=== PATIENT | male | born 1985 | race Caucasian/White ===

== ENCOUNTER 2021-09-04 14:36 | Emergency (ER) | payer OTHER, SELFPAY ==
--- NOTE | ~2021-09-04 | XR_ITS ---
XR finger 3rd LT min 2V DATE: 09/04/2021 15:07 INDICATION: Smashing injury to distal finger TECHNIQUE: 4 views COMPARISON: None FINDINGS: There is a nondisplaced fracture of the tuft of the distal phalanx. No other fracture or dislocation. No radiopaque soft tissue foreign body or subcutaneous emphysema. IMPRESSION: Nondisplaced fracture of the tuft of the distal phalanx Reviewed, dictated and finalized at location A.
[2021-09-04 14:54] VITALS: BP 126/107; PULSE 99; RESP 16; TEMP 36.6; O2SAT 97
--- NOTE | 2021-09-04 15:15 | ED.UPPEXIN ---
HPI - Extremity Injury (Upper) General Chief Complaint: Extremity Injury, Upper Stated Complaint: left hand finger smashed Time Seen by Provider: 09/04/21 15:15 Source: patient Mode of arrival: ambulatory Limitations: no limitations History of Present Illness HPI narrative: 36-year-old male presented for complaint of left middle finger pain after injury yesterday. He states he smashed into the small when moving furniture. States pain is significantly improved today. Endorses mild bleeding/bruising underneath the nail, and the tip of the finger is centrifuge separator tender to touch. He has taken Tylenol and ibuprofen and applied ice. Denies numbness, tingling, or weakness of the hand. Related Data Home Medications Medication Instructions Recorded Confirmed albuterol sulfate 90 mcg/actuation 2 inh inhalation QID PRN Shortness 09/04/21 09/04/21 aerosol inhaler Of Breath Or Wheezing budesonide-formoterol HFA 160 1 inh inhalation DAILY 09/04/21 09/04/21 mcg-4.5 mcg/actuation aerosol inhaler (Symbicort) Allergies Allergy/AdvReac Type Severity Reaction Status Date / Time cefaclor Allergy Mild Rash Verified 09/04/21 15:00 Review of Systems Review of Systems: CONSTITUTIONAL: Denies body aches, fever, chills CARDIOVASCULAR: Denies chest pain, palpitations, or edema. RESPIRATORY: Denies cough or dyspnea. GASTROINTESTINAL: Denies abdominal pain, nausea, vomiting, or diarrhea. SKIN: Reports finger bruising MUSCULOSKELETAL: Reports finger pain NEUROLOGIC: Denies headache, numbness, tingling, or weakness. All systems reviewed & are unremarkable except as noted in HPI and below PMFSH Comments At time of signature, I have reviewed and agree with nursing past medical, surgical, social and family history unless otherwise noted. Please see nursing chart for further information. There is no relevant family history pertinent to the presenting complaint Exam Narrative: GENERAL: Well-appearing CHEST: Speaks in full sentences. No respiratory distress. HEART: Regular rate and rhythm. Normal and equal peripheral pulses. EXTREMITIES: Left hand has normal strength and sensation, limited range of motion to third digit. Subungual hematoma approximately one third of the nail bed. nail is Nontender to palpation. Mild edema and ecchymosis to palmar surface of the distal 3rd digit, tender with palpation No open wounds, skin tenting, or obvious deformity; pulse palpable and equal bilaterally, skin warm, dry, pink. Capillary refill less than 3 seconds. SKIN: Warm, dry, no rash. NEURO: Alert and oriented x3. Course Course Emergency Course: Patient is aware of diagnosis, understands and agrees to treatment plan. Anticipatory guidance given. Patient agrees to follow-up as directed and is aware of reasons to seek care at the emergency department. Portions of this record may have been created with voice recognition software Level of Care: Express Care Visit Vital Signs Vital signs: Vital Signs Temperature 98 F 09/04/21 14:54 Pulse Rate 99 09/04/21 14:54 Respiratory Rate 16 09/04/21 14:54 Blood Pressure 126/107 H 09/04/21 14:54 Pulse Oximetry 97 09/04/21 14:54 Oxygen Delivery Room Air 09/04/21 14:54 Temperature 98 F 09/04/21 14:54 Pulse Rate 99 09/04/21 14:54 Respiratory Rate 16 09/04/21 14:54 Blood Pressure 126/107 H 09/04/21 14:54 Pulse Oximetry 97 09/04/21 14:54 Oxygen Delivery Room Air 09/04/21 14:54 Reviewed Procedures Orthopedic Splinting/Casting Injury #1: Splinting/Casting Date: 09/04/21 Side: left Upper Extremity Injury Location: finger (3rd) Splint: prefabricated (stacked finger splint applied perTech.) Pre-Procedure Neuro Vascular Exam: normal Post-Procedure Neuro Vascular Exam: normal MDM - Extremity Injury (Upper) MDM Narrative Medical decision making narrative: Xray reviewed with pt, Nondisplaced fracture of the tuft of the distal phal
== END 2021-09-04 15:35 | disposition home or self-care (01) ==
PROVIDERS: Emergency Provider Nurse Practitioner Family
DX: S62.663A Nondisplaced fracture of distal phalanx of left middle finger, initial encounter for closed fracture (principal); X58.XXXA Exposure to other specified factors, initial encounter; J45.909 Unspecified asthma, uncomplicated; G47.30 Sleep apnea, unspecified
CPT/HCPCS: 29130; 73140; 99204; G0463

== ENCOUNTER 2023-07-14 08:22 | Emergency (ER) | payer BC, SELFPAY ==
--- NOTE | 2023-07-14 08:28 | ED.GENADULT ---
HPI - General Adult General Chief complaint: Ear Stated complaint: Left Ear/Jaw Pain Time Seen by Provider: 07/14/23 08:28 Source: patient, RN notes reviewed and old records reviewed Mode of arrival: ambulatory Limitations: no limitations History of Present Illness HPI narrative: 38-year-old male to Express Care with complaint of acute onset left ear and jaw pain upon awakening this morning. Patient denies any pertinent history. Patient endorses seasonal allergies. Patient has not taken anything pain prior to arrival. On exam patient appears uncomfortable and in mild distress from pain. Patient able to tolerate fluids. Respirations even and nonlabored. Related Data Home Medications Medication Instructions Recorded Confirmed albuterol sulfate 90 mcg/actuation 2 inh inhalation QID PRN Shortness 09/04/21 07/14/23 aerosol inhaler Of Breath Or Wheezing budesonide-formoterol HFA 160 1 inh inhalation DAILY 09/04/21 07/14/23 mcg-4.5 mcg/actuation aerosol inhaler (Symbicort) Allergies Allergy/AdvReac Type Severity Reaction Status Date / Time cefaclor Allergy Mild Rash Verified 09/10/21 08:20 Review of Systems Review of Systems: All systems reviewed & are unremarkable except as noted in HPI and below Constitutional: Constitutional: Reports as per HPI and Denies fever(s) Eyes: Eyes: Reports no additional eye complaints ENT: Reports as per HPI, Reports otalgia ( left) and Reports facial pain ( left jaw) Cardiovascular: Cardiovascular: Reports no additional cardiovascular complaints, Denies chest pain and Denies dyspnea Respiratory: Respiratory: Reports no additional respiratory complaints, Denies cough and Denies dyspnea Musculoskeletal: Musculoskeletal: Reports no additional musculoskeletal complaints Neurologic: Reports system reviewed and no additional complaints, except as documented Psychiatric: Psychiatric: Reports no additional psychiatric complaints [facility] Past Medical History Medical History Asthma HERACLIO (obstructive sleep apnea) Surgical History Surgical History History of tonsillectomy Family History Family History Other Arthritis Asthma Diabetes mellitus Hypertension Social History Social History Smoking status: Former smoker Tobacco type: cigarettes Additional smoking assessment comments: Quit smoking 2016 Substance use: current Occupation/Education: occupation Gender identity (if verbalized by the patient): Male Comments At the time of my signature, I reviewed and agree with the nursing past medical, surgical, social, and family history. There is no relevant family history pertinent to the patient complaint. Exam Const: General: cooperative, healthy appearing, comfortable, no acute distress, alert and well nourished Nutritional Appearance: well nourished Orientation/consciousness: patient oriented x3 Limitations: no limitations HENMT: Head: normal to inspection Ears: TM normal on the right, Abnormal EAC present erythema on the left and EAC tenderness on the left; no otic discharge and TM abnormal erythematous Face/Nose/Sinus: Normal external nose present, Normal nares present, normal facial exam, No erythema and No edema Face and sinus: normal facial exam, no erythema and no edema Mouth: Yes Normal oral and palatal mucosa present Throat: posterior oropharynx abnormal erythema and postnasal drainage Eyes: General: appearance normal, both eyes and all related structures Neck: Neck: normal visual inspection, full ROM and no meningeal signs Lymphatic: no lymphadenopathy noted and no lymphedema noted Chest: Chest palpation & inspection: normal inspection of the chest Resp: Effort & Inspection: normal respiratory effort a
[2023-07-14 08:36] VITALS: BP 138/84; PULSE 80; RESP 18; TEMP 37.1; O2SAT 100
== END 2023-07-14 09:11 | disposition home or self-care (01) ==
PROVIDERS: Emergency Provider Nurse Practitioner Family
DX: H66.92 Otitis media, unspecified, left ear (principal); Z87.891 Personal history of nicotine dependence; J45.909 Unspecified asthma, uncomplicated
CPT/HCPCS: 99213; G0463

== ENCOUNTER 2024-03-25 09:27 | Emergency (ER) | payer BC, SELFPAY ==
[2024-03-25 09:38] VITALS: BP 126/77; PULSE 97; RESP 20; TEMP 36.7; O2SAT 97
--- NOTE | 2024-03-25 10:04 | ED_ITS ---
HPI - Ear Problem General Chief complaint: Ear Stated complaint: ear inf History of Present Illness [facility] Narrative: Patient is a 38-year-old male, presents to urgent care with 4 day history of right ear pain, some muffled hearing without associated fevers or chills. He denies otorrhea or trauma. He does endorse recent URI that has resolved. He takes Zyrtec daily, he has taken Tylenol once for symptom relief without much improvement. He denies any additional associated symptoms or modifying factors. Related Data Home Medications ?Medication ?Instructions ?Recorded ?Confirmed ?Last Taken ?Type albuterol sulfate 90 mcg/actuation 2 inh inhalation QID PRN Shortness 09/04/21 07/14/23 Unknown History aerosol inhaler Of Breath Or Wheezing budesonide-formoterol HFA 160 1 inh inhalation DAILY 09/04/21 07/14/23 Unknown History mcg-4.5 mcg/actuation aerosol inhaler (Symbicort) Allergies Allergy/AdvReac Type Severity Reaction Status Date / Time cefaclor Allergy Mild Rash Verified 09/10/21 08:20 Review of Systems ENT: Comments: Refer to [facility] Past Medical History Medical History Asthma HERACLIO (obstructive sleep apnea) Surgical History Surgical History History of tonsillectomy Family History Family History Other Arthritis Asthma Diabetes mellitus Hypertension Social History Social History Smoking status: Former smoker Tobacco type: cigarettes Additional smoking assessment comments: Quit smoking 2016 Substance use: current Occupation/Education: occupation Gender identity (if verbalized by the patient): Male Exam Const: General: healthy appearing and no acute distress Nutritional Appearance: obese Orientation/consciousness: patient oriented x3 Limitations: no limitations HENMT: Head: normal to inspection Ears: external ears normal, EAC's normal and TM abnormal ( bilateral serous otitis media, right TM is markedly retracted, no erythema) Face and sinus: normal facial exam and sinuses nontender Mouth: Yes Normal oral and palatal mucosa present, Yes lip normal and Yes moist mucous membranes Throat: posterior oropharynx normal and uvula midline Other: TMs remain translucent bilaterally Eyes: Conjunctivae: conjunctivae normal Pupils: Equal, round and reactive pupils present EOM: EOMs intact bilaterally Neck: Neck: normal visual inspection Chest: Chest palpation & inspection: normal inspection of the chest Resp: Effort & Inspection: normal respiratory effort Auscultation: clear to auscultation bilaterally Cardio: Rate: regular rate Rhythm: regular rhythm GI: GI Palp: Yes Soft to palpation Skin: General skin exam: normal color Rashes: no rashes Wounds: no wounds Neuro: General: patient oriented x3, moves all extremities, no meningeal signs, no focal motor deficits and CN's II-XI intact bilaterally Cranial nerves: Yes Nystagmus not present Speech: normal speech Gait exam (Neuro): Normal gait present Extrem: General: normal to inspection Course Course Emergency Course: plan to treat with short steroid course, continue antihistamine as directed [id number], follow up with PCP in 3 days if symptoms are not improving. Patient is agreeable plan Level of Care: Express Care Visit ([id number]) Vital Signs Vital signs: Vital Signs Temperature 36.7 C 03/25/24 09:38 Pulse Rate 97 03/25/24 09:38 Respiratory Rate 20 03/25/24 09:38 Blood Pressure 126/77 03/25/24 09:38 Pulse Oximetry 97 03/25/24 09:38 Oxygen Delivery Room Air 03/25/24 09:38 Temperature 36.7 C 03/25/24 09:38 Pulse Rate 97 03/25/24 09:38 Respiratory Rate 20 03/25/24 09:38 Blood Pressure 126/77 03/25/24 09:38 Pulse Oximetry 97 03/25/24 09:38 Oxygen Delivery Room Air 03/25/24 09:38 Medical Decision Making [facility] Narrative Medical decision making narrative: prednisone 40 mg daily for 5 days Differential Diagnosis Differential Diagnosis: serous otitis media, eustachian tube dysfunction, otitis media Vital Signs Vital Signs: Vital Signs Temperature 36.7 C 03/25/24 09:38 Pulse Rate 97 03/25/24 09:38 Respiratory Rate 20 03/25/24 09:38 Blood Pressure 126/77 03/25/24 09:38 Pulse Oximetry 97 03/25/24 09:38 Oxygen Delivery Room Air 03/25/24 09:38 Temperature 36.7 C 03/25/24 09:38 Pulse Rate 97 03/25/24 09:38 Respiratory Rate 20 03/25/24 09:38 Blood Pressure 126/77 03/25/24 09:38 Pulse Oximetry 97 03/25/24 09:38 Oxygen Delivery Room Air 03/25/24 09:38 Discharge Plan Discharge Clinical Impression: Acute dysfunction of right eustachian tube Patient Disposition: Home, Self-Care Condition: Stable Instructions: Antibiotic Form, Fluid In The Ear (Serous Otitis Media) (ED) Additional Instructions: START AND COMPLETE ORAL STEROIDS DIRECTED. CONTINUE [id number] ZYRTEC OR CLARITIN DIRECTED, PUSH FLUIDS AND REST. FOLLOW-UP WITH YOUR PRIMARY DOCTOR IN 3 DAYS IF YOUR SYMPTOMS ARE NOT IMPROVING Patient Language: Bulgarian Prescriptions: New prednisone 20 mg tablet 40 mg PO DAILY 5 Days Qty: 10 0RF No Action amoxicillin-pot clavulanate 875-125 mg tablet 1 tablet PO Q12H Qty: 20 0RF budesonide-formoterol [Symbicort] 160-4.5 mcg/actuation HFA aerosol inhaler 1 inh INHALATION DAILY albuterol sulfate 90 mcg/actuation HFA aerosol inhaler 2 inh INHALATION QID PRN (Reason: Shortness Of Breath Or Wheezing) Follow-up/Referrals: PHYSICIAN NOT ON STAFF,NONSTAFF [Primary Care Provider] - Time of Disposition: 10:09
--- OUTSIDE RECORDS SUMMARY | 2024-04-01 05:25 | XMS_ITS ---
Author Organization [facility] Address [address] [place] [address] Care Team Providers Care Fructose Loader Name Role Phone Mario Napier Primary Care Provider Unavail able Cassy Jaramillo Unavailable [phone] ZZ-Migration, Provider Unavailable Unavailab le Allergies Allergen (clinical drug ingredient) Drug/Non Drug Allergy documented on EMR Reaction Allergy Type Onset Date Status CECLOR (uncoded) unknown reaction Allergy Active [facility]AS[facility] Conversion Encounter Medications Medication SIG (Take, Route, Frequency, Duration) Notes Start Date End Date Status Nasacort Allergy 24HR 55 MCG/ACT 2 spray(s) intranasally once a day for 30 day(s) Active Symbicort 160-4.5 MCG/ACT 2 puff(s) inhaled 2 times a day Active Auvi-Q 0.3 MG/0.3ML as directed intramuscularly once for 1 dose(s) Active AEROCHAMBER MDI SPACER - MOUTHPIECE (ADULT) N/A DIRECTED PO PER ASTHMA ACTION PLAN for 30 DAY(S) *Please review for potential replacement for e-prescription and drug interaction check* Active PROAIR HFA 90 MCG/INH 2 PUFF(S) INHALED EVERY 6 HOURS *Please review for potential replacement for e-prescription and drug interaction check* Active Flonase Allergy Relief 50 MCG/ACT 2 spray(s) intranasally BID Active ZyrTEC Allergy 10 MG 1 tab(s) orally once a day Active Encounters Encounter Location Date Provider Diagnosis [facility] [address] [place] [address] 09/10/2023 Provider ZZ-Migration Allergic rhinitis due to pollen J30.1 and Cough R05 Assessments Encounter Date Diagnosis (ICD Code) Assessment Notes Treatment Notes Treatment Clinical Notes Section Notes 09/10/2023 Allergic rhinitis due to pollen (ICD-10 - J30.1) 09/10/2023 Cough (ICD-10 - R05) Plan Of Treatment Medication Medication Name Sig Start Date Stop Date Notes Nasacort Allergy 24HR 55 MCG/ACT 2 spray(s) intranasally once a day for 30 day(s) Symbicort 160-4.5 MCG/ACT 2 puff(s) inhaled 2 times a day Auvi-Q 0.3 MG/0.3ML as directed intramuscularly once for 1 dose(s) AEROCHAMBER MDI SPACER - MOUTHPIECE (ADULT) N/A DIRECTED PO PER ASTHMA ACTION PLAN for 30 DAY(S) *Please review for potential replacement for e-prescription and drug interaction check* PROAIR HFA 90 MCG/INH 2 PUFF(S) INHALED EVERY 6 HOURS *Please review for potential replacement for e-prescription and drug interaction check* Flonase Allergy Relief 50 MCG/ACT 2 spray(s) intranasally BID ZyrTEC Allergy 10 MG 1 tab(s) orally onc e a day Progress Notes * Mario DOBBSDOB: [birth year] (38 yo M)Acc No.[id number]:09/10/2023 Patient:?Mario DOBBS Provider:?Provider Migration :1985???Age:38 Y???Sex:Male Carroll e:09/10/2023 Address:[address] [place], [place] [id number] Pcp:Mario Napier Subjective: * Chief Complaints: * ???1. [facility] To [facility] Con version Encounter. * Medical History:? * Allergies:?CECLOR: unknown r eaction. Objective: * Vitals:? Assessment: * Assessment: 1.?Allergic rhinitis due to pollen - J30.1 (Primary)???2.?Cough - R05??? Plan: * Treatment: 2.?Cough? Continue Symbicort Aerosol, 160-4.5 MCG/ACT, 2 puff(s), inhaled, 2 times a day;?Continue PROAIR HFA AEROSOL, 90 MCG/INH, 2 PUFF(S), INHALED, EVERY 6 HOURS, Notes to Pharmacist: *Please review for potential replacement for e-prescription and drug interaction check*;?Continue AEROCHAMBER MDI SPACER - MOUTHPIECE (ADULT) SPACER FOR MDI USE, N/A, DIRECTED, PO, PER ASTHMA ACTION PLAN, 30 DAY(S), 1, Refills 11, Notes to Pharmacist: *Please review for potential replacement for e-prescription and drug interaction check*.?? * Billing Information: * Visit Code:? * Procedure Codes:? * Electronic signature of Ronda ESTES-Migration on 04/01/2024 at 05:24 AM COIL WRAPPER Sign off status: Pending * Provider:?Provider Migration Date:?09/09 Generated for Lashnoda turcios/Abelardo/Melissa on:?04/01/2024 05:24 AM COIL WRAPPER
--- OUTSIDE RECORDS SUMMARY | 2024-04-01 05:25 | XMS_ITS | Patient Health Record ---
Author Organization [facility] Address [address] [place] [address] Care Team Providers Care Semi Truck Driver Name Role Phone Mario Napier Primary Care Provider Unavail able Cassy Jaramillo Unavailable [phone] [facility]Migration, Provider Unavailable Unavailab le Allergies Allergen (clinical drug ingredient) Drug/Non Drug Allergy documented on EMR Reaction Allergy Type Onset Date Status CECLOR (uncoded) unknown reaction Allergy Active Reason For Referral No Information Medications Medication SIG (Take, Route, Frequency, Duration) Notes Start Date End Date Status Flonase Allergy Relief 50 MCG/ACT 2 spray(s) intranasally BID Active ZyrTEC Allergy 10 MG 1 tab(s) orally once a day Active Nasacort Allergy 24HR 55 MCG/ACT 2 spray(s) intranasally once a day for 30 day(s) Active NASACORT ALLERGY 24HR 55 mcg/inh 2 spray(s) intranasally once a day for 30 day(s) Active Symbicort 160-4.5 MCG/ACT 2 puff(s) inhaled 2 times a day Active FLONASE 50 mcg/inh 2 spray(s) intranasally BID Active Auvi-Q 0.3 MG/0.3ML as directed intramuscularly once for 1 dose(s) Active SYMBICORT 160 mcg-4.5 mcg/inh 2 puff(s) inhaled 2 times a day Active AEROCHAMBER MDI SPACER - MOUTHPIECE (ADULT) N/A DIRECTED PO PER ASTHMA ACTION PLAN for 30 DAY(S) *Please review for potential replacement for e-prescription and drug interaction check* Active AUVI -Q 0.3 mg as directed intramuscularly once for 1 dose(s) Active PROAIR HFA 90 MCG/INH 2 PUFF(S) INHALED EVERY 6 HOURS *Please review for potential replacement for e-prescription and drug interaction check* Active ZYRTEC 10 mg 1 tab(s) orally once a day Active Immunizations Vaccine Route Administration Date Status Comme nts Covid 19 (Pfizer) Unknown 12/26/2020 Administered Covid 19 (Pfizer) Unknown 01/16/2021 Administered NOC Flucelevax Quadrivalent IM Intramuscular 01/14/2020 Administered Social History Tobacco Use: Social History Observation Description Date Details (start date - stop date) Never Smoker NA - NA Smoking Smart Form: Question Answer Notes Are you a: never smoker Problems Problem Type SNOMED Code ICD Code Onset Dates Problem Status W/U Status Risk Notes Problem Chronic allergic conjunctivitis (47794026) Other chronic allergic conjunctivitis (H10.45) Active confirmed Problem Allergic rhinitis caused by pollen (disorder) (24084306) Allergic rhinitis due to pollen (J30.1) Active confirmed Problem Allergic rhinitis (47132368) Other allergic rhinitis (J30.89) Active confirmed Problem Snoring (42934245) Snoring (R06.83) Active confirmed Problem Vaccination given (566351517) Encounter for immunization (Z23) Active confirmed Problem Allergic rhinitis caused by animal hair and dander (884839993135106) Allergic rhinitis due to animal (cat) (dog) hair and dander (J30.81) Active confirmed Problem Cough (52315600) Cough (R05) Active confirmed Problem Eruption of skin (704381189) Rash and other nonspecific skin eruption (R21) Active confirmed Problem Urticaria (265834771) Other urticaria (L50.8) Active confirmed Problem Adverse effect o f cephalosporins and other beta-lactam antibiotics, initial encounter (T36.1X5A) Active confirmed Problem Adverse effect o f cephalosporins and other beta-lactam antibiotics, subsequent encounter (T36.1X5D) Active confirmed Problem Shortness of breath (993145673) Shortness of breath (R06.02) Active confirmed Encounters Encounter Location Date Provider Diagnosis [facility] [place] [address] 09/10/2023 Provider MiladisZ-Migration Allergic rhinitis due to pollen J30.1 and Cough R05 Assessments Encounter Date Diagnosis (ICD Code) Assessment Notes Treatment Notes Treatment Clinical Notes Section Notes 09/10/2023 Allergic rhinitis due to pollen (ICD-10 - J30.1) 09/10/2023 Cough (ICD-10 - R05) Plan Of Treatment No Information Insurance Providers Payer Name Payer Address Payer Phone Subscriber Number Group Number Insured Name Patient Relationship to Insured Coverage Start Date Coverage End Date [facility] [address] [place] [address] [id number] Mario Dobbs Self - patient is the insured Medical (General) History Surgical History Surgery Date(Month/Year) Tonsils 2001
== END 2024-03-25 10:16 | disposition home or self-care (01) ==
PROVIDERS: Emergency Provider Nurse Practitioner Family
DX: H69.81 Other specified disorders of Eustachian tube, right ear (principal); Z87.891 Personal history of nicotine dependence
CPT/HCPCS: 99213; G0463

== ENCOUNTER 2024-11-01 09:56 | Emergency (ER) | payer OTHER, SELFPAY ==
--- NOTE | ~2024-11-01 | XR_ITS ---
XR foot RT min 3V 11/01/2024 10:19 INDICATION: Right fourth toe pain PROCEDURE: 4 views right foot COMPARISON: No prior studies for comparison. FINDINGS: Fracture, dislocation or subluxation is not identified. Lisfranc joint intact. The soft tis sues appear within normal limits. No foreign bodies are identified. IMPRESSION: 1: NO ACUTE BONE OR JOINT ABNORMALITY IDENTIFIED. Reviewed, dictated and finalized at location A.
[2024-11-01 10:04] VITALS: BP 145/75; PULSE 88; RESP 16; TEMP 36.6; O2SAT 100
--- NOTE | 2024-11-01 10:15 | ED_ITS ---
HPI - Extremity Injury (Lower) General Chief Complaint: Extremity Injury, Lower Stated Complaint: Right Foot/Toe Pain and Swelling Time Seen by Provider: 11/01/24 10:00 Source: patient and RN notes reviewed Mode of arrival: ambulatory Limitations: no limitations History of Present Illness HPI Narrative: 39-year-old male Presents Express Care complaining of right 4th toe redness, swelling, pain since this morning. Patient woke up with symptoms this morning. Patient denies any injury to his toe. Patient has a history of gout with is not taking any preventative medications for it. Patient says his gout is diet controlled. Patient's has not taken anything for the pain. Patient denies any numbness, tingling or any injuries. Patient has a denies any significant past medical history. Related Data Home Medications ?Medication ?Instructions ?Recorded ?Confirmed ?Last Taken ?Type albuterol sulfate 90 mcg/actuation 2 inh inhalation QID PRN Shortness 09/04/21 07/14/23 Unknown History aerosol inhaler Of Breath Or Wheezing budesonide-formoterol HFA 160 1 inh inhalation DAILY 09/04/21 07/14/23 Unknown History mcg-4.5 mcg/actuation aerosol inhaler (Symbicort) Allergies Allergy/AdvReac Type Severity Reaction Status Date / Time cefaclor Allergy Mild Rash Verified 11/01/24 10:07 Review of Systems Review of Systems: CONSTITUTIONAL: Denies fever, chills, or sweats. EYES: Denies visual changes, redness, or discharge. ENT: Denies rhinorrhea, congestion, sore throat, or otalgia. CARDIOVASCULAR: Denies chest pain, palpitations, or edema. RESPIRATORY: Denies cough or dyspnea. GASTROINTESTINAL: Denies abdominal pain, nausea, vomiting, or diarrhea. GENITOURINARY: Denies dysuria or hematuria. SKIN: Denies rash, wound, or itching. MUSCULOSKELETAL: Denies back pain, joint pain, or myalgia. Positive for right toe redness, pain, and swelling NEUROLOGIC: Denies headache, numbness, or weakness. PSYCHIATRIC: Denies anxiety or depression. All other systems reviewed are negative, except as documented in HPI. [facility] Past Medical History Medical History Asthma HERACLIO (obstructive sleep apnea) Surgical History Surgical History History of tonsillectomy Family History Family History Other Arthritis Asthma Diabetes mellitus Hypertension Social History Social History Smoking status: Former smoker Tobacco type: cigarettes Additional smoking assessment comments: Quit smoking 2015 Substance use: current Occupation/Education: occupation Gender identity (if verbalized by the patient): Male Comments At the time of my signature, I reviewed and agree with the nursing past medical, surgical, social, and family history. There is no relevant family history pertinent to the patient complaint. Exam Narrative: GENERAL: This is a well-nourished, well-developed adult, in no apparent distress. They are non ill-appearing, nontoxic appearing. HEAD: normocephalic, atraumatic. EYES: Sclera clear/white. Vision is grossly intact. Conjunctiva normal. Extraocular movement intact. EARS: External ears normal Hearing grossly intact. NOSE: External nose normal THROAT: Mucous membranes moist NECK: Neck supple CARDIOVASCULAR: Regular rate and rhythm RESPIRATORY: Respiratory rate normal, respiratory effort nonlabored, no respiratory distress NEURO: awake, alert, and oriented to person, place and time. There were no obvious focal neurologic abnormalities. EXTREMITIES: Right foot: No obvious deformity. Fourth toe is erythematous and tender to palpate. Redness and swelling extends proximal to the PIP joint. Capillary refill less than 2 seconds. Normal range of motion. Right pedal Pulse 2 +palpable. Normal sensation. Neurovascular status intact. Patient able to wiggle his toes. BACK: Nontender without deformity. Course Course Emergency Course: Portions of this record may have been created with voice recognition software Level of Care: Express Care Visit Vital Signs Vital signs: Vital Signs Temperature 97.9 F 11/01/24 10:04 Pulse Rate 88 11/01/24 10:04 Respiratory Rate 16 11/01/24 10:04 Blood Pressure 145/75 H 11/01/24 10:04 Pulse Oximetry 100 11/01/24 10:04 Oxygen Delivery Room Air 11/01/24 10:04 Temperature 97.9 F 11/01/24 10:04 Pulse Rate 88 11/01/24 10:04 Respiratory Rate 16 11/01/24 10:04 Blood Pressure 145/75 H 11/01/24 10:04 Pulse Oximetry 100 11/01/24 10:04 Oxygen Delivery Room Air 11/01/24 10:04 Reviewed MDM - Extremity Injury (Lower) MDM Narrative Medical decision making narrative: Patient has a history of gout, will obtain imaging to assess for any signs of gout on the foot x-ray. Gout score 9.5. Likely acute gout flare. Will prescribe colchicine. Discussed physical exam findings. Advised supportive measures and signs/symptoms to go to the ER. Pt is appropriate for outpt treatment and f/u. Differential Diagnosis Differential diagnosis: Likely other (Gout, arthritis, cellulitis, fracture) Imaging Data Radiologist's impression: ITS Impressions Foot X-Ray 11/01/24 10:22 IMPRESSION: 1: NO ACUTE BONE OR JOINT ABNORMALITY IDENTIFIED. Critical Care Time Critical Care Time Critical Care Time: No Discharge Plan Discharge Clinical Impression: Gout attack Qualifiers: Gout site: toe Gout etiology: unspecified cause Laterality: right Qualified Code(s): M10.9 - Gout, unspecified Patient Disposition: Home Condition: Stable Instructions: Low Purine Diet (ED), Gout (ED) Additional Instructions: X-ray is negative for any fracture or acute findings. Is likely this is a gout flare-up in your toe. Take the colchicine as directed. He will take 1 plate 2 mg now and then 0.6 mg 1 hour after. Then take 0.6 mg twice daily next 3 days. A low purine diet is attached. You may take Tylenol or ibuprofen as needed for pain. Follow instructions of the bottle. Follow-up with PCP in 3-5 days. If he develops any fevers, worsening redness, swelling, pain, body aches, chills, nausea, vomiting or any serious concerns please go to the ER. Patient Language: Wolof Prescriptions: New colchicine 0.6 mg tablet See Rx Instructions .ROUTE .COMPLEX Qty: 9 0RF Rx Instructions: On Day 1, Take 2 (1.2mg) tablets now by mouth. Then take 1 (0.6 mg) tablet 1 hour after by mouth. Day 2-4 take 1 tablet (0.6 mg) twice a day by mouth. No Action budesonide-formoterol [Symbicort] 160-4.5 mcg/actuation HFA aerosol inhaler 1 inh INHALATION DAILY albuterol sulfate 90 mcg/actuation HFA aerosol inhaler 2 inh INHALATION QID PRN (Reason: Shortness Of Breath Or Wheezing) Follow-up/Referrals: UNKNOWN,DOCTOR [Primary Care Provider] - Time of Disposition: 10:33
== END 2024-11-01 10:44 | disposition home or self-care (01) ==
DX: M10.9 Gout, unspecified (principal); Z87.891 Personal history of nicotine dependence; J45.909 Unspecified asthma, uncomplicated
CPT/HCPCS: 73630; 99213; G0463